=== PATIENT | male | born 1995 | race Caucasian/White ===

== ENCOUNTER 2021-03-16 22:47 | Emergency (ER) | payer BC ==
[~2021-03-16] VITALS: Ht 177.8 cm; Wt 79.2 kg
[2021-03-16 22:53] VITALS: BP 137/91
[2021-03-16] MEDS ORDERED: LIDOCAINE 1%-EPI 1:100K, 20ML INFIL ONE (23:00)
--- NOTE | 2021-03-16 23:01 | NUR ---
PT SEEN IN TRAIGE BY PA. NEW BANDAGE APPLIED. AWARE OF PLAN FOR TARA
[2021-03-16] MEDS ORDERED: LIDOCAINE 1%-EPI 1:100K, 20ML ONE (23:05)
== END 2021-03-16 23:43 | disposition home or self-care (01) ==
LOC: ED 23:30
DX: S01.01XA Laceration without foreign body of scalp, initial encounter (principal); S09.90XA Unspecified injury of head, initial encounter; W01.0XXA Fall on same level from slipping, tripping and stumbling without subsequent striking against object, initial encounter; Y93.89 Activity, other specified; Y92.410 Unspecified street and highway as the place of occurrence of the external cause; Y99.8 Other external cause status
CPT/HCPCS: 12032; 99284